=== PATIENT | female | born 1945 | race Caucasian/White ===

== ENCOUNTER → 2023-12-15 18:50 | Outpatient (REF) | payer MEDICARE, OTHER, SELFPAY | LOC: WDC 18:50 | PROVIDERS: ATTENDING PHYSICIAN Surgery; FAMILY PHYSICIAN Family Medicine | DX: Z12.31 Encounter for screening mammogram for malignant neoplasm of breast (principal); D05.11 Intraductal carcinoma in situ of right breast | CPT/HCPCS: 77063; 77067 ==

== ENCOUNTER → 2024-01-05 14:11 | Outpatient (REF) | payer MEDICARE, OTHER, SELFPAY ==
[2024-01-05 14:46] LABS: Blood Urea Nitrogen 23 mg/dl (7-17)
[2024-01-05 15:04] LABS: Free T4 0.87 ng/dl (0.78-2.19)
[2024-01-05 15:18] LABS: TSH 3.15 uIU/ml (0.47-4.68)
== END ==
LOC: REG 14:11
PROVIDERS: ATTENDING PHYSICIAN Ophthalmology; FAMILY PHYSICIAN Family Medicine
DX: H49.11 Fourth [trochlear] nerve palsy, right eye (principal)
CPT/HCPCS: 36415; 82565; 84439; 84443; 84520

== ENCOUNTER → 2024-01-23 19:43 | Outpatient (REF) | payer MEDICARE, OTHER, SELFPAY | LOC: MRI 19:43 | PROVIDERS: ATTENDING PHYSICIAN Ophthalmology; FAMILY PHYSICIAN Family Medicine | DX: H49.11 Fourth [trochlear] nerve palsy, right eye (principal) | CPT/HCPCS: 70553; A9575 ==

== ENCOUNTER 2024-02-20 20:31 | Inpatient (IN) | payer MEDICARE, OTHER, SELFPAY ==
[2024-02-20 18:02] VITALS: BP 136/76
--- NOTE | 2024-02-20 18:25 | ED.GENMED ---
History of Present Illness
General
Chief Complaint: Cough
Source: patient
Exam Limitations: none
Time Seen by Provider: 02/20/24 18:05
Nursing documentation reviewed up to this point in time: agreed with
Travel History
Have you had any contact with someone who has COVID-19?: No
Do you have any symptoms of coronavirus? Fever > 100 degrees, chills, cough, shortness of breath, sore throat, loss of taste or smell, muscle aches, or headache?: No
History of Present Illness
History of Present Illness:
78 yo female with history of NIDDM states 'I think I have pneumonia.' She has gradually worsening cough, fatigue over past week. Feels nauseous but no vomiting. Denies fever, neck pain, headache. Denies sore throat or shortness of breath.
Past History
Past History
ED Past Medical History: Cancer (Breast 2020 w lumpectomy), Hypercholesterolemia, NIDDM and Other (Intermittent 'second degree heart block')
ED Past Surgical History: Tonsilectomy
Social History
Tobacco: Non-smoker
Alcohol: None
Drug: None
Personal:
Living: alone (This daughter)
Employment: Retired
Family History
Family History: Other
Review of Systems
Review of Systems
Allergies reviewed?: Yes
All Other Systems: ROS reviewed and negative except as documented in HPI and ROS
Constitutional: Reports fever and fatigue
EENT: Denies sore throat
Respiratory: Reports cough; Denies trouble breathing
Cardiac: Denies chest pain
ABD/GI: Reports nausea; Denies abdominal pain, vomiting or diarrhea
: Reports no symptoms
Musculoskeletal: Reports no symptoms
Skin: Reports no symptoms
Neurological: Reports no symptoms
Phy Exam
Physical Exam
Physical Exam:
GENERAL: No acute distress. A&Ox3.
CONSTITUTIONAL: 100.0
EYES: clear, conjunctivae normal
Neck: Supple
ENMT: moist mucus membranes, Pharynx nl
RESPIRATORY: Regular respirations, mildly labored, lungs with mild expiratory wheezes in bases, intermittent junky cough.
CARDIOVASCULAR: Regular rate and rhythm, audible murmur, no rubs.
GI: Soft, nontender, normal BS
MUSCULOSKELETAL: Moves with ease. Well perfused. No edema
SKIN: Warm, dry, pale
PSYCH: Depressed mood and affect. Well kept, interactive and appropriate
NEUROLOGIC: Awake, alert and oriented. No focal neurological deficits
Course
Orders/Labs/Results
Orders:
Orders
02/20/24 18:20
CXR2 [CR Chest - 2 Views ] Urgent
Comment:
Reason For Exam: cough
02/20/24 18:34
COVID-19 Antigen Urgent
Source: Nasal Swab
Complete Blood Count/With Diff Urgent
Comprehensive Metabolic Panel Urgent
0.9% Sodium Chloride 500 ml [Nss] 500 ml IV BOLUS
02/20/24 19:10
Urinalysis Reflex To Culture Urgent
Date Specimen was Collected: 02/20/24
Time Specimen was Collected: 19:09
Urine Microscopic Reflex Cult Urgent
02/20/24 19:39
Azithromycin 500 mg/250 ml [Zithromax Infusion] 500 mg in 250 ml IV NOW
CefTRIAXone [Rocephin] 1,000 mg IV NOW STA
02/20/24 19:54
Lactic Acid Q4H
Comment: CANCEL 2nd LACTIC ACID IF 1st LACTIC ACID IS LESS THAN 2
Blood Culture Q30M
TERESA Source: Blood/Venous
Specimen Description:
Blood Culture Q30M
TERESA Source: Blood/Venous
Specimen Description:
02/20/24 20:02
Procalcitonin Routine
PCT Algorithmm Indication: Respiratory
02/20/24 20:13
Admit/Transfer Patient As Directed
Co-Sign Provider:
Level of Care: Inpatient admission
Assign to:: Medical/Surgical
Physician / Group: [email or web address]
Diagnosis: PNA /CAP
Reason for Hospitalization: PNA
Expected length of stay greater than two midnights?: Yes
ELOS- Estimated Length of Stay in days: 3
I certify the patient meets the requirements for IP care: Yes
02/20/24 20:15
Code Status As Directed
Resuscitation Status: Full Code
02/20/24 23:45
Lactic Acid Q4H
Comment: CANCEL 2nd LACTIC ACID IF 1st LACTIC ACID IS LESS THAN 2
Abnormal Lab Results
02/20/24 02/20/24
18:34 19:10
WBC 17.2 H 10^3/uL
(4.8-10.8)
Abs Immat Gran (auto) 0.1 H 10^3/uL
(0-0.05)
Absolute Neuts (auto) 13.0 H 10^3/uL
(1.4-6.5)
Absolute Monos (auto) 1.3 H 10^3/uL
(0.1-0.6)
Neutrophils % 75.5 H %
(42.2-75.2)
Lymphocytes % 15.4 L %
(20.5-51.1)
Sodium 133 L mmol/L
(135-145)
Glucose 239 H mg/dl
(70-99)
ALT 45 H U/L
(0-35)
Alkaline Phosphatase 220 H U/L
(38-126)
Leukocyte Esterase Rfl Trace A
(Negative)
Urine Bacteria (Reflex) Few A
(Negative)
Urine Glucose Trace A
(Negative)
02/20/24 18:34
02/20/24 18:34
Vital Signs
Initial and Last Documented VS:
Initial Vital Signs
Temp Pulse Resp BP Pulse Ox
99.4 F 101 18 136/76 97
02/20/24 18:02 02/20/24 18:02 02/20/24 18:02 02/20/24 18:02 02/20/24 18:02
Last Documented Vital Signs
Temp Pulse Resp BP Pulse Ox
99.4 F 101 18 136/76 98
02/20/24 18:02 02/20/24 18:02 02/20/24 18:02 02/20/24 18:02 02/20/24 18:31
MDM/Problems Addressed
Differential Diagnosis Includes:
PNA, covid
MDM/Problems Addressed:
78 yo female with history of NIDDM states 'I think I have pneumonia.' She has gradually worsening cough, fatigue over past week. Feels nauseous but no vomiting. Denies fever, neck pain, headache. Denies sore throat or shortness of breath.
Temp 100.0 po for this examiner
NAD
6:48 p.m.
CBC: WBC17.2 with elevated neutrophils.
CMP:Glucose 239
Chest x-ray: Radiology report read: Small patchy opacity in the lingula suspicious for pneumonia
Pt admitted, Hospitalist notified of admission'
Blood cultures pending.
Chronic conditions affecting care: DM
*Critical Care Note
Total Time (30-74mins, 75-104mins- exclusive of procedures): Not Applicable
ED Attending Note
-
Portions of this chart may have been created with voice recognition software.� Occasional wrong word or��sound alike� substitutions may have occurred due to the inherent limitations of voice recognition software.
Discharge Plan
Departure
Patient Disposition: Admit
Date of Disposition: 02/20/24
Time of Disposition: 19:41
Admit to: Med/Surg
Presentation/result/management discussed w/ accepting MD/DO: Hospitalist
Condition: Fair
Covid-19: Negative COVID-19
Discharge Problem:
Lingular pneumonia
Interventions
Interventions:
*Risk Screen - Suicide Last Done: 02/20/24 18:31
*General Assessment Last Done: 02/20/24 18:31
*Neglect/Abuse Screening Last Done: 02/20/24 18:31
ED- Fall Risk Assessment Last Done: 02/20/24 18:31
*ED COVID-19 Vaccine History Last Done: 02/20/24 18:31
ED- Pulmonary Assessment Last Done: 02/20/24 18:31
[2024-02-20] MEDS: NSS 500 IV (18:36)
[2024-02-20 18:42] LABS: % Basophils 0.4 % (0-2); % Eosinophils 0.7 % (0-6); % Immature Granulocytes 0.5 % (0-0.5); % Lymphocytes 15.4 % (20.5-51.1); % Monocytes 7.5 % (1.7-9.3); % Neutrophils 75.5 % (42.2-75.2); Absolute Basophils 0.1 10^3/uL (0-0.2); Absolute Eosinophils 0.1 10^3/uL (0-0.7); Absolute Immature Granulocytes 0.1 10^3/uL (0-0.05); Absolute Lymphocytes 2.7 10^3/uL (1.2-3.4); Absolute Monocytes 1.3 10^3/uL (0.1-0.6); Hematocrit 40.3 % (37.0-47.0); Hemoglobin 13.9 g/dL (12.0-16.0); Mean Corp Hgb Conc. 34.5 g/dL (33.0-37.0); Mean Corpuscular Hgb 28.7 pg (27.0-31.0); Mean Corpuscular Volume 83.1 fL (81.0-99.0); Mean Platelet Volume 9.3 fL (7.4-10.4); Nucleated Red Blood Cells % 0 %; Platelet Count 268 10^3/uL (130-400); Red Blood Cell Count 4.85 10^6/uL (4.20-5.40); White Blood Cell Count 17.2 10^3/uL (4.8-10.8)
[2024-02-20 19:06] LABS: ALT (SGPT) 45 U/L (0-35); AST (SGOT) 34 U/L (14-36); Albumin 3.7 g/dl (3.5-5.0); Alkaline Phosphatase 220 U/L (38-126); Blood Urea Nitrogen 16 mg/dl (7-17); COVID-19 Antigen Negative (Negative); Carbon Dioxide 26 mmol/L (22-30); Chloride 98 mmol/L (98-107); Glucose 239 mg/dl (70-99); Sodium 133 mmol/L (135-145); Total Bilirubin 0.9 mg/dl (0.2-1.3); Total Protein 6.7 g/dl (6.3-8.2); eGFR > 60.00
[2024-02-20 19:07] VITALS: BP 162/73
[2024-02-20 19:22] LABS: Urine Albumin Negative (Neg - Trace); Urine Bilirubin Negative (Negative); Urine Character Clear (Clear); Urine Color Yellow; Urine Glucose Trace (Negative); Urine Ketone Negative (Negative); Urine Leukocyte Trace (Negative); Urine Nitrite Negative (Negative); Urine Occult Blood Negative (Negative); Urine Urobilinogen Negative (Neg - 1+)
[2024-02-20 19:41] LABS: Urine Bacteria Few (Negative); Urine Red Blood Cell 0-2 /HPF (0-2)
[2024-02-20] MEDS: ROCEPHIN 1000 MG IV (19:59)
[2024-02-20] MEDS: ZITHROMAX INFUSION 250 IV (20:00)
--- NOTE | 2024-02-20 20:06 | HPS.HSE ---
Addendum entered and electronically signed by Camacho Duque MD 02/20/24 20:22:
Correction of HPI:
Cough
- acute onset since and gradually worsening
<del>-</del> <del>non</del> <del>productive</del>
- productive cough with colored green phlegm started today
- denied fever but T 99.4 at ER
- denied UTRI like symptoms
- no recent travel
- no contact exposure
- POS leucocytosis
Original Note:
Family Physician
-
Family Physician: Chance Kerr
Chief Complaint
-
cough
History of Present Illness
HPI
78F remote HX PNA, Dyslipidemia, T2DM seen at ER for evaluation of cough
Cough
- acute onset and gradually worsening
- non productive
- denied fever but T 99.4 at ER
- denired UTRI like symtoms
- no recent travel
- no contact exposure
- POS leucocytosis
ROS
Nausea
fatigue
Medical History
Past Medical History
Past Medical History: Reports Hypercholesterolemia and NIDDM
Past Surgical History: Reports Other ( hemorrhoidectomy.)
Social History
Tobacco: Non-smoker
Alcohol: None
Living: With Family
Family History
Family History: Not pertinent
Allergies / Home Medications
Allergies reflects when Allergies were last updated in [employer].
Home Medications with original date entered in [employer]
Allergy/Medication List:
Allergies
Allergy/AdvReac Type Severity Reaction Status Date / Time
levofloxacin [From Levaquin] Allergy redness Verified 02/20/24 19:06
ragweed pollen Allergy sneezing Verified 02/20/24 19:06
Sulfa (Sulfonamide Allergy Hives Verified 02/20/24 19:06
Antibiotics)
venom-honey bee Allergy Hives Verified 02/20/24 19:06
[bee venom (honey bee)]
Home Medications
calcium carbonate (Oyster Shell Calcium 500) 500 mg PO DAILY Supplement 03/05/16
cetirizine 5 mg-pseudoephedrine ER 120 mg tablet,extended release,12hr (Zyrtec-D) 1 tab PO HS Allergies 03/05/16
butabarbital 30 mg tablet (Butisol) 30 mg PO PRN PRN migraine 03/12/21
metformin 500 mg tablet 500 mg PO BID 03/12/21
cholecalciferol (vitamin D3) 50 mcg (2,000 unit) tablet (Vitamin D3) 75 mcg PO DAILY 05/24/23
acetaminophen 325 mg tablet (Tylenol) 650 mg PO Q4H PRN pain 05/27/23
Review of Systems
-
Constitutional: Reports Fatigue
EENT: Reports No Symptoms
Respiratory: Reports Cough and Trouble Breathing
Cardiac: Reports No Symptoms
Abdomen/GI: Reports No Symptoms
: Reports No Symptoms
Musculoskeletal: Reports No Symptoms
Skin: Reports No Symptoms
Neurological: Reports No Symptoms
Endocrine: Reports No Symptoms
Hematologic/Lymphatic: Reports No Symptoms
Psych: Reports No Symptoms
Physical Exam
Vital Signs
Vital Signs
Temp Pulse Resp BP Pulse Ox
99.4 F 101 18 136/76 98
02/20/24 18:02 02/20/24 18:02 02/20/24 18:02 02/20/24 18:02 02/20/24 18:31
Physical Exam
General: No Apparent Distress, Comfortable and Conversant
HEENT: NormoCephalic, Anicteric and Moist mucous membranes
Respiratory: Wheezes (at base, mild )
Cardiac: S1/S2 and Regular Rhythm
Breast: Deferred by me
GI: Soft, Non Tender, Non Distended and Normal Bowel Sounds
Rectal: Deferred by Provider
Genito-urinary: Deferred by me
Musculoskeletal: No Edema
Skin: Warm and Dry
Neuro: AO x 3
Psych: Calm
Laboratory Results
-
02/20/24 18:34
02/20/24 18:34
Laboratory Results
Total Bilirubin 0.9 mg/dl (0.2-1.3) 02/20/24 18:34
AST 34 U/L (14-36) 02/20/24 18:34
ALT 45 U/L (0-35) H 02/20/24 18:34
Alkaline Phosphatase 220 U/L (38-126) H 02/20/24 18:34
Data Reviewed
-
Diagnostic Radiology: Report Reviewed by me
Lab Data: Labs Reviewed by me
Old Records: Reviewed
Impression/Plan
-
Reviewed VS: T99.4 ST 100 POx hi 90s on RA
Data
WCC 17
Na 133
BG 240
ALT 45
AKP 220
NEG Covid
Pending LA and PCT
CXR:
Small patchy opacity in the lingula suspicious for pneumonia.
Last hospitalist admission: 2015
ASSESSMENT & PLAN
Probably PNA @ Lingula of Lt lung upper lobe
Presumed CAP
- BCx
- check PCT and LA
- agree with IV CFTZ and PO azithromycin
- f/u T curve and WCC
T2DM on Metformin
- add ISS low
- cont Metformin
Dyslipidemia
DVT Px: LMWH
Code: full
IP MS
[2024-02-20 20:34] LABS: Lactic Acid 1.2 mmol/L (0.7-2.0)
[2024-02-20 21:00] VITALS: BP 177/86; BMI 29.1
[2024-02-20 21:07] LABS: Glucose - Point of Care 181 mg/dl (70-99)
[2024-02-20] MEDS: TYLENOL 650 MG PO (21:33)
[2024-02-20] MEDS: GLUCOPHAGE 500 MG PO (21:33)
[2024-02-20 22:57] LABS: Procalcitonin 0.12 ng/ml (0.0-0.25)
[2024-02-20 23:16] VITALS: BP 141/72
[2024-02-21 07:47] LABS: Glucose - Point of Care 140 mg/dl (70-99)
[2024-02-21] MEDS: GLUCOPHAGE 500 MG PO ×2 (07:50→19:30)
[2024-02-21] MEDS: NOVOLOG FLEXPEN-LOW RESISTANCE SC ×2 (07:50→16:54)
[2024-02-21] MEDS: ZITHROMAX 500 MG PO (07:50)
[2024-02-21 08:01] VITALS: BP 147/77
[2024-02-21 08:26] LABS: % Basophils 0.5 % (0-2); % Immature Granulocytes 0.5 % (0-0.5); % Lymphocytes 15.1 % (20.5-51.1); % Monocytes 8.6 % (1.7-9.3); % Neutrophils 73.3 % (42.2-75.2); Absolute Basophils 0.1 10^3/uL (0-0.2); Absolute Eosinophils 0.3 10^3/uL (0-0.7); Absolute Immature Granulocytes 0.1 10^3/uL (0-0.05); Absolute Lymphocytes 2.3 10^3/uL (1.2-3.4); Absolute Monocytes 1.3 10^3/uL (0.1-0.6); Absolute Neutrophils 11.1 10^3/uL (1.4-6.5); Hematocrit 41.2 % (37.0-47.0); Mean Corpuscular Hgb 29.8 pg (27.0-31.0); Mean Corpuscular Volume 87.7 fL (81.0-99.0); Mean Platelet Volume 9.6 fL (7.4-10.4); Nucleated Red Blood Cells % 0 %; Platelet Count 272 10^3/uL (130-400); Red Cell Dist. Width 12.9 % (11.5-14.5); White Blood Cell Count 15.2 10^3/uL (4.8-10.8)
[2024-02-21 09:00] LABS: Glycohemoglobin (HgbA1c) 7.6 % (4.0-5.6)
[2024-02-21 09:02] LABS: Blood Urea Nitrogen 15 mg/dl (7-17); Calcium 9.3 mg/dl (8.4-10.2); Carbon Dioxide 25 mmol/L (22-30); Chloride 105 mmol/L (98-107); Estimated Creatinine Clearance 74 ml/min; Glucose 150 mg/dl (70-99); Potassium 4.5 mmol/L (3.5-5.1); Sodium 139 mmol/L (135-145); eGFR > 60.00
--- NOTE | 2024-02-21 11:20 | CM ---
Patient seen bedside.
IA completed.
Patient lives alone with her dog.
Independent prior to admission without assistive deives.
patient drives.
Patient has had VN in the past.
Patient has a nebulizer at her home in [place], but not here, she will need a script for a second machine.
PCP: Dr Kerr
Pharmacy: [facility]
Plan: home, needs script for nebulizer.
[2024-02-21 11:58] LABS: Glucose - Point of Care 172 mg/dl (70-99)
[2024-02-21] MEDS: DUONEB 3 ML INH ×2 (12:32→20:52)
[2024-02-21] MEDS: NOVOLOG FLEXPEN-LOW RESISTANCE 1 UNITS SC (13:07)
--- NOTE | 2024-02-21 15:08 | W.PN.HOSP.TC ---
Today's Communication/Plan
-
continue current abx
recheck WBC in AM
if continues to improve, potential dc tomorrow
Assessment / Plan
Assessment / Plan
Probably PNA @ Lingula of Lt lung upper lobe
CXR Small patchy opacity in the lingula suspicious for pneumonia.
Presumed CAP
- BCx
- PCT 0.12 and LA 1.2
- agree with IV CFTZ and PO azithromycin
- f/u T curve and WCC
WBC 17.2-->15.2k
Still coughing, still feels weak
SaO2 94% on room air
T2DM on Metformin
- add ISS low
- cont Metformin
a1c 7.6%
Dyslipidemia
DVT Px: LMWH
Code: full
IP MS
Anticipated Discharge: 24 - 48 hours
Subjective/Interval History
-
Date of Service: February 21, 2024
Still feels weak and is coughing up phlegm
Objective Data
-
Labs:
Laboratory Results
02/21/24
07:52
WBC 15.2 H
Hgb 14.0
Hct 41.2
Plt Count 272
Sodium 139
Potassium 4.5
Chloride 105
Carbon Dioxide 25
BUN 15
Creatinine 0.7
Glucose 150 H
Calcium 9.3
Vital Signs:
Vital Signs
Temp Pulse Resp BP Pulse Ox
99.6 F 78 16 147/77 94
02/21/24 08:01 02/21/24 12:38 02/21/24 12:38 02/21/24 08:01 02/21/24 12:38
Review of Systems
-
History Source: Patient and Coordinated Provider
Constitutional: Reports Fever (Tmax 100.5)
EENT: Reports No Symptoms Reported
Respiratory: Reports Cough; Denies Trouble Breathing or Wheezing
Cardiac: Reports No Symptoms; Denies Chest Pain
Genitourinary: Reports No Symptoms
Neuro: Reports No Symptoms
Physical Exam
-
General: Well Developed, Well Nourished and No Apparent Distress
HEENT: Normocephalic, Atraumatic and Moist Mucous Membranes
Respiratory: Negative Clear to Auscultation (coarse BS, no wheeze)
Cardiac: Regular Rhythm and S1/S2
GI: Soft, Nontender and Nondistended
Neuro: Awake, Alert and Oriented
[2024-02-21 15:52] VITALS: PULSE 94; O2SAT 94
[2024-02-21 15:53] VITALS: BP 159/76
--- NOTE | 2024-02-21 16:02 | PTOTSP ---
Patient receptive and motivated to participate in evaluation. Demonstrates good insight into safety with transfers, ambulation and elevations without use of AD.
At this time, does not demonstrate need for continued skilled therapy and will be discharged. If needs change, please re-consult.
[2024-02-21 16:34] LABS: Glucose - Point of Care 149 mg/dl (70-99)
[2024-02-21] MEDS: LOVENOX 40 MG SC (17:20)
[2024-02-21] MEDS: ROCEPHIN 1000 MG IV (19:30)
[2024-02-21] MEDS: STERILE WATER FOR INJECTION 10 ML IV (19:31)
[2024-02-21 21:54] LABS: Glucose - Point of Care 203 mg/dl (70-99)
[2024-02-21] MEDS: MUCINEX 600 MG PO (22:41)
[2024-02-21 23:00] VITALS: BP 150/81
[2024-02-22 07:23] LABS: Glucose - Point of Care 134 mg/dl (70-99)
[2024-02-22] MEDS: NOVOLOG FLEXPEN-LOW RESISTANCE SC (07:27)
[2024-02-22 07:52] VITALS: BP 130/76
[2024-02-22 08:00] LABS: % Basophils 0.6 % (0-2); % Immature Granulocytes 0.6 % (0-0.5); % Lymphocytes 28.9 % (20.5-51.1); % Monocytes 8.4 % (1.7-9.3); % Neutrophils 57.5 % (42.2-75.2); Absolute Basophils 0.1 10^3/uL (0-0.2); Absolute Eosinophils 0.4 10^3/uL (0-0.7); Absolute Immature Granulocytes 0.1 10^3/uL (0-0.05); Absolute Lymphocytes 3.1 10^3/uL (1.2-3.4); Absolute Monocytes 0.9 10^3/uL (0.1-0.6); Absolute Neutrophils 6.1 10^3/uL (1.4-6.5); Hematocrit 42.1 % (37.0-47.0); Hemoglobin 13.9 g/dL (12.0-16.0); Mean Corpuscular Hgb 28.8 pg (27.0-31.0); Mean Corpuscular Volume 87.2 fL (81.0-99.0); Mean Platelet Volume 9.5 fL (7.4-10.4); Nucleated Red Blood Cells % 0 %; Platelet Count 311 10^3/uL (130-400); Red Blood Cell Count 4.83 10^6/uL (4.20-5.40); Red Cell Dist. Width 12.8 % (11.5-14.5); White Blood Cell Count 10.6 10^3/uL (4.8-10.8)
[2024-02-22] MEDS: MUCINEX 600 MG PO (08:43)
[2024-02-22] MEDS: ZITHROMAX 500 MG PO (08:43)
[2024-02-22] MEDS: GLUCOPHAGE 500 MG PO (08:43)
--- NOTE | 2024-02-22 09:45 | W.PN.HOSP.TC ---
Today's Communication/Plan
-
dc to home
Assessment / Plan
Assessment / Plan
Probably PNA @ Lingula of Lt lung upper lobe
CXR Small patchy opacity in the lingula suspicious for pneumonia.
Presumed CAP
- BCx NGTD
- PCT 0.12 and LA 1.2
- agree with IV CFTZ and PO azithromycin
- f/u T curve and WCC
WBC 17.2-->15.2-->10.6k
coughing resolved, still feels weak, but significantly better past 24 hrs
SaO2 94% on room air
T2DM on Metformin
- resume on dc
- cont Metformin
a1c 7.6%
Dyslipidemia
DVT Px: LMWH
Code: full
dc to home
see dictated note
More than 30 minutes spent in discharge including
Final examination of the patient
Summarizing hospital stay
Instructions for continuing care to all relevant caregivers
Preparation of discharge records, prescriptions, and referral forms
Total time spent (in minutes): 45
Anticipated Discharge: Today
Subjective/Interval History
-
Date of Service: February 22, 2024
Feels well, cough has lessened, walking around room without difficulty
Objective Data
-
Labs:
Laboratory Results
02/22/24
07:43
WBC 10.6
Hgb 13.9
Hct 42.1
Plt Count 311
Vital Signs:
Vital Signs
Temp Pulse Resp BP Pulse Ox
97.4 F 72 18 130/76 95
02/22/24 07:52 02/22/24 07:52 02/22/24 07:52 02/22/24 07:52 02/22/24 07:52
I&O
02/21/24 02/22/24 02/23/24
06:59 06:59 06:59
Intake Total 1200 / 1200
Balance 1200 / 1200
Review of Systems
-
History Source: Patient and Coordinated Provider
Constitutional: Denies Fever (afebrile x 36 hrs)
EENT: Reports No Symptoms Reported
Respiratory: Reports Cough (markedly diminished); Denies Trouble Breathing or Wheezing
Cardiac: Reports No Symptoms; Denies Chest Pain
Genitourinary: Reports No Symptoms
Neuro: Reports No Symptoms
Physical Exam
-
General: Well Developed, Well Nourished and No Apparent Distress
HEENT: Normocephalic, Atraumatic and Moist Mucous Membranes
Respiratory: Clear to Auscultation (clear)
Cardiac: Regular Rhythm and S1/S2
GI: Soft, Nontender and Nondistended
Neuro: Awake, Alert, Oriented, AO x 3 and No Motor Deficits
--- NOTE | 2024-02-22 09:54 | W.DS.TRANS ---
DC Summary - Counselor At Law
-
Discharge Instructions:
Discharge Diagnosis/Procedures Pneumonia
Diet Diabetic, Carb Controlled
Activity No strenuous activity
Driving Restrictions Not until seen by your Dr
Bathing Restrictions None
Blood Work CBC, BMP in 1-2 weeks
Others Tests follow up CXR in 3-4 weeks
Instructions:
Stand-Alone Forms:
Changes to Home Medications: Yes
Discharge Medications:
DC Medications w/original date entered in [employer]
calcium carbonate (Oyster Shell Calcium 500) 500 mg PO DAILY Supplement 03/05/16
cetirizine 5 mg-pseudoephedrine ER 120 mg tablet,extended release,12hr (Zyrtec-D) 1 tab PO HS Allergies 03/05/16
butabarbital 30 mg tablet (Butisol) 30 mg PO PRN PRN migraine 03/12/21
cholecalciferol (vitamin D3) 50 mcg (2,000 unit) tablet (Vitamin D3) 75 mcg PO DAILY 05/24/23
acetaminophen 325 mg tablet (Tylenol) 650 mg PO Q4H PRN pain 05/27/23
metformin 500 mg tablet,extended release 24hr (osmotic) 500 mg PO BID 02/20/24
azithromycin 250 mg tablet 250 mg PO DAILY 6 days #6 tabs 02/22/24
cefuroxime axetil 500 mg tablet 500 mg PO BID 7 days #14 tabs 02/22/24
Home Medication Changes
Azithromycin and Ceftin added to complete antibiotic course
Pending Results: Yes
Additional Pending Results:
finalization of Blood Cx, NGTD
--- NOTE | 2024-02-22 10:17 | CM ---
Patient seen bedside.
IMM reviewed.
PT recommending home skilled PT needs.
Script for minineb machine given to patient.
Daughter will transport home.
Plan: home no needs.
[2024-02-22 11:03] VITALS: BP 145/80
== END 2024-02-22 11:15 | disposition home or self-care (01) | DRG 195 ==
LOC: 4 WEST ACU 20:31
PROVIDERS: Registered Nurse; ADMITTING PHYSICIAN Internal Medicine; ATTENDING PHYSICIAN Internal Medicine; EMERGENCY PHYSICIAN Emergency Medicine; FAMILY PHYSICIAN Family Medicine
DX: J18.9 Pneumonia, unspecified organism (principal); E11.9 Type 2 diabetes mellitus without complications; E78.00 Pure hypercholesterolemia, unspecified; I44.1 Atrioventricular block, second degree; J30.1 Allergic rhinitis due to pollen; Z88.1 Allergy status to other antibiotic agents; Z91.030 Bee allergy status; Z88.2 Allergy status to sulfonamides; Z85.3 Personal history of malignant neoplasm of breast; Z11.52 Encounter for screening for COVID-19; Z87.01 Personal history of pneumonia (recurrent); Z79.84 Long term (current) use of oral hypoglycemic drugs
CPT/HCPCS: 71046; 80048; 80053; 81003; 81015; 82962; 83036; 83605; 84145; 85025; 87040; 87811; 94640; 96361; 96374; 96375; 97116; 97162; 99285

== ENCOUNTER → 2024-03-05 11:56 | Outpatient (REF) | payer MEDICARE, OTHER, SELFPAY | LOC: HWRAD 11:56 | PROVIDERS: ATTENDING PHYSICIAN Family Medicine | DX: R05.1 Acute cough (principal) | CPT/HCPCS: 71046 ==

== ENCOUNTER 2024-10-26 13:29 | Emergency (ER) | payer MEDICARE, OTHER, SELFPAY ==
[2024-10-26 13:32] VITALS: BP 110/67
--- NOTE | 2024-10-26 13:35 | ED.GENMED ---
ED Provider Triage
-
Patient seen by provider in Triage?: Seen in Triage
Attestation: A medical screening examination has been initiated by a qualified medical provider. Based on the assessment performed at this time, it has been determined that an emergent medical condition may exist and the patient has been informed
that further medical evaluation and possible additional diagnostic testing may be needed.
HPI: 79-year-old female presents for evaluation of generalized weakness for the past 2 days. Reports nausea, chills, and headache. No abdominal pain, chest pain, or shortness of breath.
GENERAL: Alert , in no apparent distress
EYE: No visual abnormalities.
NECK: Trachea midline
ENT: No visible abnormalities.
LUNGS: No acute respiratory distress
NEUROLOGICAL: Alert and oriented
SKIN: Skin intact. No visible changes.
MUSCULOSKELETAL: Moving extremities normally
PSYCH: Normal and appropriate interaction.
This is a medical evaluation conducted in person to initiate diagnostic evaluation and provide initial therapeutics. Please see further documentation by the treating clinician.
History of Present Illness
General
Chief Complaint: Weakness
History of Present Illness
History of Present Illness:
see triag enote
Past History
Past History
ED Past Medical History: Cancer (Breast 2020 w lumpectomy), Hypercholesterolemia, NIDDM and Other (Intermittent 'second degree heart block')
ED Past Surgical History: Tonsilectomy
Social History
Tobacco: Non-smoker
Alcohol: None
Drug: None
Personal:
Living: alone (This daughter)
Employment: Retired
Family History
Family History: Other
Phy Exam
Physical Exam
Physical Exam:
see triage note
Course
Orders/Labs/Results
Orders:
Orders
10/26/24 13:39
COVID-19 Antigen Urgent
Source: Nasal Swab
Complete Blood Count/With Diff Urgent
Comprehensive Metabolic Panel Urgent
Influenza A+B Rapid Molecular Urgent
TERESA Source: Nasal Swab
Specimen Description:
10/26/24 13:49
Urinalysis Reflex To Culture Urgent
Date Specimen was Collected: 10/26/24
Time Specimen was Collected: 13:41
Urine Microscopic Reflex Cult Urgent
Abnormal Lab Results
10/26/24 10/26/24
13:39 13:49
WBC 4.3 L 10^3/uL
(4.8-10.8)
Absolute Lymphs (auto) 0.9 L 10^3/uL
(1.2-3.4)
Absolute Monos (auto) 0.7 H 10^3/uL
(0.1-0.6)
Monocytes % 17.0 H %
(1.7-9.3)
Sodium 131 L mmol/L
(135-145)
Chloride 96 L mmol/L
(98-107)
Glucose 139 H mg/dl
(70-99)
AST 65 H U/L
(14-36)
ALT 70 H U/L
(0-35)
Alkaline Phosphatase 137 H U/L
(38-126)
Urine Bacteria (Reflex) Few A
(Negative)
Urine Albumin (Reflex) 1+ A
(Neg - Trace)
10/26/24 13:39
10/26/24 13:39
Vital Signs
Initial and Last Documented VS:
Initial Vital Signs
Temp Pulse Resp BP Pulse Ox
97.6 F 97 16 110/67 96
10/26/24 13:32 10/26/24 13:32 10/26/24 13:32 10/26/24 13:32 10/26/24 13:32
Last Documented Vital Signs
Temp Pulse Resp BP Pulse Ox
97.6 F 97 16 110/67 96
10/26/24 13:32 10/26/24 13:32 10/26/24 13:32 10/26/24 13:32 10/26/24 13:32
*Critical Care Note
Total Time (30-74mins, 75-104mins- exclusive of procedures): Not Applicable
ED Attending Note
-
Portions of this chart may have been created with voice recognition software.� Occasional wrong word or��sound alike� substitutions may have occurred due to the inherent limitations of voice recognition software.
Discharge Plan
Departure
Prescriptions:
No Action
cetirizine-pseudoephedrine [Zyrtec-D] 1 EACH tablet extended release 12 hr
1 tab PO HS
calcium carbonate [Oyster Shell Calcium 500] 500 MG tablet
500 mg PO DAILY
Butisol 30 MG tablet
30 mg PO PRN PRN (Reason: migraine)
cholecalciferol (vitamin D3) [Vitamin D3] 50 mcg (2,000 unit) Tablet
75 mcg PO DAILY
metformin 500 mg Tablet Extended Release 24hr
500 mg PO BID
prednisone 10 mg Tablet
10 mg PO DIRECTED Qty: 21 0RF
Rx Instructions:
6 tablets on day 1,5 tablets on day 2,4 tablets on day 3, 3 tablets on day 4, 2 tablets on day 5, 1 tablet on day 6
Referrals:
UNKNOWN,NO INTERVIEW [Family Provider] -
Interventions
Interventions:
*Risk Screen - Suicide Last Done: 10/26/24 13:32
*Neglect/Abuse Screening Last Done: 10/26/24 13:32
Discharge Date and Time
Print Language: CYMRAES
[2024-10-26 13:49] LABS: % Basophils 0.7 % (0-2); % Eosinophils 0.2 % (0-6); % Immature Granulocytes 0.5 % (0-0.5); % Lymphocytes 21.7 % (20.5-51.1); % Neutrophils 59.9 % (42.2-75.2); Absolute Lymphocytes 0.9 10^3/uL (1.2-3.4); Absolute Monocytes 0.7 10^3/uL (0.1-0.6); Absolute Neutrophils 2.6 10^3/uL (1.4-6.5); Hematocrit 43.9 % (37.0-47.0); Hemoglobin 14.6 g/dL (12.0-16.0); Mean Corp Hgb Conc. 33.3 g/dL (33.0-37.0); Mean Corpuscular Hgb 28.9 pg (27.0-31.0); Mean Corpuscular Volume 86.8 fL (81.0-99.0); Mean Platelet Volume 9.3 fL (7.4-10.4); Nucleated Red Blood Cells % 0 %; Platelet Count 174 10^3/uL (130-400); Red Blood Cell Count 5.06 10^6/uL (4.20-5.40); White Blood Cell Count 4.3 10^3/uL (4.8-10.8)
[2024-10-26 14:00] LABS: COVID-19 Antigen Negative (Negative)
[2024-10-26 14:11] LABS: ALT (SGPT) 70 U/L (0-35); AST (SGOT) 65 U/L (14-36); Albumin 4.3 g/dl (3.5-5.0); Alkaline Phosphatase 137 U/L (38-126); Blood Urea Nitrogen 16 mg/dl (7-17); Calcium 8.7 mg/dl (8.4-10.2); Carbon Dioxide 25 mmol/L (22-30); Chloride 96 mmol/L (98-107); Glucose 139 mg/dl (70-99); Potassium 4.2 mmol/L (3.5-5.1); Sodium 131 mmol/L (135-145); Total Bilirubin 0.5 mg/dl (0.2-1.3); Total Protein 6.9 g/dl (6.3-8.2); eGFR > 60.00
[2024-10-26 14:17] LABS: Urine Albumin 1+ (Neg - Trace); Urine Bilirubin Negative (Negative); Urine Character Slightly Cloudy (Clear); Urine Color Yellow; Urine Glucose Negative (Negative); Urine Ketone Negative (Negative); Urine Leukocyte Negative (Negative); Urine Nitrite Negative (Negative); Urine Occult Blood Negative (Negative); Urine Urobilinogen Negative (Neg - 1+)
[2024-10-26 14:32] LABS: Urine Bacteria Few (Negative)
[2024-10-26 14:33] LABS: Urine Red Blood Cell 0-2 /HPF (0-2); Urine White Cell 0-2 /HPF (0-5)
== END 2024-10-26 14:00 | disposition home or self-care (01) ==
LOC: EMR 13:29
PROVIDERS: EMERGENCY PHYSICIAN Physician Assistant
DX: R53.1 Weakness (principal); E78.00 Pure hypercholesterolemia, unspecified; E11.9 Type 2 diabetes mellitus without complications; Z85.3 Personal history of malignant neoplasm of breast
CPT/HCPCS: 99283; 80053; 81003; 81015; 85025; 87502; 87811

== ENCOUNTER 2024-10-27 14:11 | Emergency (ER) | payer MEDICARE, OTHER, SELFPAY ==
[2024-10-27 14:26] VITALS: BP 126/67
--- NOTE | 2024-10-27 18:25 | EDRN ---
Gm Fernandez PA in room w/ pt.
--- NOTE | 2024-10-27 18:35 | ED.GENMED ---
History of Present Illness
General
Chief Complaint: Pneumonia Symptoms
Source: patient and family
Time Seen by Provider: 10/27/24 18:23
History of Present Illness
History of Present Illness:
79-year-old female with past medical history of cns-[id number]-mrllptcru diabetes, breast cancer status postlumpectomy, pneumonia presenting to the emergency department for evaluation of continuous cough, fever and bodyaches. Patient reports that she
came to the emergency department here yesterday but due to the wait decided to leave and was able to get an appointment with her primary care provider where she was diagnosed with possible pneumonia and given a prescription for doxycycline. Patient
reports she was tested for both COVID and flu by her primary care provider and this was reportedly negative.
Past History
Past History
ED Past Medical History: Cancer (Breast 2020 w lumpectomy), Hypercholesterolemia, NIDDM and Other (Intermittent 'second degree heart block')
ED Past Surgical History: Tonsilectomy and Other
Social History
Tobacco: Non-smoker
Alcohol: None
Drug: None
Personal:
Living: alone (This daughter)
Employment: Retired
Family History
Family History: Other
Review of Systems
Review of Systems
All Other Systems: ROS reviewed and negative except as documented in HPI and ROS
Phy Exam
Physical Exam
Physical Exam:
GENERAL: Alert , in no apparent distress, ill-appearing but nontoxic
EYE: conjunctiva clear
NECK: Supple
ENT: o/p clr, mmm.
CARDIAC: Regular rate and rhythm
LUNGS: Rhonchorous lung sounds with faint wheeze posterior apical treviño, no tachypnea, speaking full sentences
NEUROLOGICAL: Alert and oriented
SKIN: Warm and dry, skin intact.
MUSCULOSKELETAL: well perfused.
PSYCH: Normal and appropriate interaction.
Scores
Heart Failure Risk
Heart Failure Risk Score: Not Applicable
Heart Score for Chest Pain Patients
STEMI patient?: Not applicable
Withdrawal Assessment of Alcohol
Withdrawal Assessment Completed?: Not applicable
Course
Orders/Labs/Results
Orders:
Orders
10/27/24 14:30
CXR2 [CR Chest - 2 Views ] Urgent
Comment:
Reason For Exam: sob
10/27/24 18:33
Ipratropium/Albuterol Sulfate [Duoneb] 3 ml INH R NOW ONE
10/27/24 14:30
10/27/24 14:30
Vital Signs
Initial and Last Documented VS:
Initial Vital Signs
Temp Pulse Resp BP Pulse Ox
99.6 F 89 16 126/67 97
10/27/24 14:26 10/27/24 14:26 10/27/24 14:26 10/27/24 14:26 10/27/24 14:26
Last Documented Vital Signs
Temp Pulse Resp BP Pulse Ox
99 F 79 18 143/63 92
10/27/24 19:29 10/27/24 19:29 10/27/24 18:45 10/27/24 19:29 10/27/24 19:29
MDM/Problems Addressed
Differential Diagnosis Includes:
COVID, flu, other viral etiology, pneumonia
MDM/Problems Addressed:
79-year-old female presenting back to the emergency department for reevaluation after being triaged and left without seeing a provider yesterday, reportedly saw primary care provider yesterday as well who diagnosed the patient with possible
pneumonia. She took 2 doses of doxycycline, today still felt coughing and fatigue so came back to the ER. Record review from yesterday shows patient had labs and COVID and flu testing done with flu test coming back positive. Patient's labs were
also noted for mild leukopenia. She remains hemodynamically stable. Oral temperature at time of my exam was 100.1. Given her rhonchorous lung sounds and wheezing we will give her a DuoNeb. Patient also notes she has a nebulizer machine at home
to use. Anticipate discharge home following.
*Radiology
Radiology exam reviewed: preliminary read by ED provider (Clear lungs)
*Pulse Oximetry
Patient hypoxic: no
*Neck Band Setter Interpretation
Rate: normal
Rhythm: sinus
*Critical Care Note
Total Time (30-74mins, 75-104mins- exclusive of procedures): Not Applicable
Patient Management
Escalation/DeEscalation of care consider admission/obs:
Following nebulizer patient does report some improvement. Her oxygen saturation remains within normal limits and she is not in any respiratory distress. Given patient's symptoms started this past Tuesday she is not a candidate for Tamiflu.
Advised on continued supportive measures. Patient aware of return precautions to the ER.
ED Attending Note
-
Portions of this chart may have been created with voice recognition software.� Occasional wrong word or��sound alike� substitutions may have occurred due to the inherent limitations of voice recognition software.
Discharge Plan
Departure
Patient Disposition: Home (Routine Discharge)
Date of Disposition: 10/27/24
Time of Disposition: 19:20
Patient with high blood pressure during this ER visit?: No
Discharge Problem:
Influenza A
Instructions: Flu in adults - Discharge instructions
Prescriptions:
New
prednisone 10 mg Tablet
10 mg PO DIRECTED Qty: 21 0RF
Rx Instructions:
6 tablets on day 1,5 tablets on day 2,4 tablets on day 3, 3 tablets on day 4, 2 tablets on day 5, 1 tablet on day 6
No Action
cetirizine-pseudoephedrine [Zyrtec-D] 1 EACH tablet extended release 12 hr
1 tab PO HS
calcium carbonate [Oyster Shell Calcium 500] 500 MG tablet
500 mg PO DAILY
Butisol 30 MG tablet
30 mg PO PRN PRN (Reason: migraine)
cholecalciferol (vitamin D3) [Vitamin D3] 50 mcg (2,000 unit) Tablet
75 mcg PO DAILY
metformin 500 mg Tablet Extended Release 24hr
500 mg PO BID
Referrals:
Chance Kerr MD [Family Provider] -
Interventions
Interventions:
*Risk Screen - Suicide Last Done: 10/27/24 14:26
*General Assessment Last Done: 10/27/24 18:45
*Neglect/Abuse Screening Last Done: 10/27/24 14:26
ED- Fall Risk Assessment Last Done: 10/27/24 18:45
*ED COVID-19 Vaccine History Last Done: 10/27/24 18:45
*Nursing Disposition Last Done: 10/27/24 19:47
ED- Cardiac Assessment Last Done: 10/27/24 18:45
ED- Pulmonary Assessment Last Done: 10/27/24 19:47
Discharge Date and Time
Discharge Date/Time: 10/27/24 19:47
Print Language: LAO
[2024-10-27] MEDS: DUONEB 3 ML INH (18:44)
[2024-10-27 18:45] VITALS: BP 131/76; BMI 29.1
--- NOTE | 2024-10-27 19:24 | EDRN ---
Pt states she has chest pain at 4/10 when coughing only. Pt was shown how to splint her chest and had less pain in that area w/ a cough.
[2024-10-27 19:29] VITALS: BP 143/63
== END 2024-10-27 19:47 | disposition home or self-care (01) ==
LOC: EMR 14:11
PROVIDERS: EMERGENCY PHYSICIAN Student in an Organized Health Care Education/Training Program; FAMILY PHYSICIAN Family Medicine
DX: J10.1 Influenza due to other identified influenza virus with other respiratory manifestations (principal); E78.00 Pure hypercholesterolemia, unspecified; E11.9 Type 2 diabetes mellitus without complications; Z85.3 Personal history of malignant neoplasm of breast
CPT/HCPCS: 94640; 99284; 71046; 93005

== ENCOUNTER → 2024-12-17 10:59 | Outpatient (REF) | payer MEDICARE, OTHER, SELFPAY | LOC: WDC 10:59 | PROVIDERS: ATTENDING PHYSICIAN Surgery; FAMILY PHYSICIAN Family Medicine | DX: Z12.31 Encounter for screening mammogram for malignant neoplasm of breast (principal); Z85.3 Personal history of malignant neoplasm of breast; D05.11 Intraductal carcinoma in situ of right breast | CPT/HCPCS: 77063; 77067 ==

== ENCOUNTER → 2025-03-22 12:40 | Outpatient (REF) | payer MEDICARE, OTHER, SELFPAY ==
[2025-03-22 13:10] LABS: % Eosinophils 4.9 % (0-6); % Immature Granulocytes 0.2 % (0-0.5); % Lymphocytes 34.2 % (20.5-51.1); % Monocytes 7.2 % (1.7-9.3); % Neutrophils 52.5 % (42.2-75.2); Absolute Basophils 0.1 10^3/uL (0-0.2); Absolute Eosinophils 0.4 10^3/uL (0-0.7); Absolute Lymphocytes 2.8 10^3/uL (1.2-3.4); Absolute Monocytes 0.6 10^3/uL (0.1-0.6); Absolute Neutrophils 4.4 10^3/uL (1.4-6.5); Hematocrit 46.1 % (37.0-47.0); Hemoglobin 15.4 g/dL (12.0-16.0); Mean Corp Hgb Conc. 33.4 g/dL (33.0-37.0); Mean Corpuscular Hgb 29.1 pg (27.0-31.0); Mean Corpuscular Volume 87.1 fL (81.0-99.0); Mean Platelet Volume 9.3 fL (7.4-10.4); Nucleated Red Blood Cells % 0 %; Platelet Count 252 10^3/uL (130-400); Red Blood Cell Count 5.29 10^6/uL (4.20-5.40); Red Cell Dist. Width 13.2 % (11.5-14.5); White Blood Cell Count 8.3 10^3/uL (4.8-10.8)
[2025-03-22 13:47] LABS: Blood Urea Nitrogen 20 mg/dl (7-17); Calcium 9.9 mg/dl (8.4-10.2); Carbon Dioxide 29 mmol/L (22-30); Chloride 108 mmol/L (98-107); Glucose 121 mg/dl (70-99); Potassium 4.7 mmol/L (3.5-5.1); Sodium 142 mmol/L (135-145); eGFR > 60.00
== END ==
LOC: REG 12:40
PROVIDERS: ATTENDING PHYSICIAN Orthopaedic Surgery; FAMILY PHYSICIAN Family Medicine
DX: Z01.818 Encounter for other preprocedural examination (principal)
CPT/HCPCS: 36415; 80048; 85025; 93005

== ENCOUNTER → 2025-05-01 13:59 | Outpatient (REF) | payer MEDICARE, OTHER, SELFPAY | LOC: RAD 13:59 | PROVIDERS: ATTENDING PHYSICIAN Family Medicine | DX: R05.2 Subacute cough (principal) | CPT/HCPCS: 71046 ==